=== PATIENT | female | born 1965 | race Two or more races ===

== ENCOUNTER 2018-09-08 05:57 | Day surgery (SDC) | payer OTHER ==
[~2018-09-08 05:57] MED LIST: LOSARTAN POTASS50 MG
== END 2018-09-08 13:30 | disposition home or self-care (01) ==
LOC: CIR.AMB 05:57
DX: D12.8 Benign neoplasm of rectum (principal)

== ENCOUNTER 2020-10-19 09:56 | Day surgery (SDC) | payer OTHER | END 2020-10-19 15:50 | disposition home or self-care (01) | LOC: AMB-ENDOS 09:56 → EDBD 12:45 → AMB-ENDOS 15:50 | PROVIDERS: ATTEND Colon & Rectal Surgery | DX: D12.4 Benign neoplasm of descending colon (principal); D12.8 Benign neoplasm of rectum; K64.1 Second degree hemorrhoids; Z20.822 Contact with and (suspected) exposure to COVID-19 ==